=== PATIENT | female | born 1985 | race Caucasian/White ===

== ENCOUNTER 2016-09-08 14:54 | Inpatient (IN) | payer MEDICAID ==
[~2016-09-08] VITALS: Ht 152.4 cm; Wt 83.8 kg
[2016-09-08 14:59] VITALS: Ht 152.4 cm; Wt 83.8 kg
[2016-09-08 15:00] VITALS: BP 139/95
[2016-09-08] MEDS ORDERED: PREN1TAB62 PO (15:08)
[2016-09-08 16:12] LABS: ADD UMIC YES; URINE BILIRUBIN (Dip) NEGATIVE (NEGATIVE); URINE BLOOD (Dip) NEGATIVE (NEGATIVE); URINE COLOR LT. YELLOW (YELLOW); URINE GLUCOSE (Dip) NEGATIVE (NEGATIVE); URINE KETONES (Dip) NEGATIVE (NEGATIVE); URINE LEUKOCYTE ESTERASE (Dip) TRACE (NEGATIVE); URINE NITRITE (Dip) NEGATIVE (NEGATIVE); URINE TOTAL PROTEIN (Dip) NEGATIVE (NEGATIVE); URINE UROBILINOGEN (Dip) 0.2 E.U./dL (0.1-1.0)
[2016-09-08 16:20] LABS: BACTERIA,URINE FEW; URINE RBCS 0-2 /HPF (0)
--- NOTE | 2016-09-08 16:23 | RADRPT ---
PROCEDURE: US OB biophysical profile. CLINICAL INDICATION: decreased movements, GDM TECHNIQUE: Multiple sonographic images of the pelvis were obtained. The images were reviewed on a PACS workstation. COMPARISON: No prior studies are available for comparison. FINDINGS: There is a single viable intrauterine gestation. Cardiac activity is present with 148 beats per min [place]. There is a vertex presentation. The placenta is posterior. There is no evidence of placental abruption. There is a slightly increased amount of amniotic fluid with an ANIKA = 23.5 cm. Biophysical profile: movement 2/2 tone 2/2. breathing 2/2 ANIKA 2/2 Total 02/20 RPTAT: AA . IMPRESSION: Normal biophysical profile. Mild polyhydramnios. . .Peter Hurtado MD, Date Time Electronically viewed and signed by .Peter Hurtado MD, MD on 09/08/2016 16:23 .S/
--- NOTE | 2016-09-08 16:23 | RADRPT ---
PROCEDURE: US OB. CLINICAL INDICATION: Size and dates , GDM TECHNIQUE: Multiple sonographic images of the pelvis and gravid uterus were obtained. The images were reviewed on a PACS workstation. COMPARISON: No prior studies are available for comparison. FINDINGS: There is a single viable intrauterine gestation. Cardiac activity is present with 135 beats per min mar[place]. There is a vertex presentation. The placenta is posterior. There is no evidence for an abruption or placenta previa. There is an increased amount of amniotic fluid with an ANIKA = 23.5 cm. Measurements were made in order to determine age. The results are as follows: BPD =9.7 cm HC =35.1 cm AC =36.5 cm FL =7.8 cm Estimated gestational age of approximately 40 weeks and 2 days based on ultrasound measurements. Clinical age: 37 weeks and 5 days. The EFW = 4035 g, >97%, based on LMP age. RPTAT: AA IMPRESSION: Single viable intrauterine gestation of approximately 40 weeks and 2 days based on ultrasound measu rements. Larger than clinical age by 2.5 weeks. Mild polyhydramnios. .Peter Hurtado MD, Date Time Electronically viewed and signed by .Peter Hurtado MD, on 09/08/2016 16:22 .S/
--- NOTE | 2016-09-08 17:11 | NSTRPT ---
NST Information Datetime Report Generated by CPN: 09/08/2016 17:11 Datetime: 09/08/2016 09:06 NST Information EGA: 37.5 Test Number: 6 Time on Monitor: 09/08/2016 09:25 Time off Monitor: 09/08/2016 10:06 NST Duration (Min): 41 Reason for NST: Diabetes Mellitus; Other Reason for NST Other: A1DM Test and Monitor Explained: Monitor Explained; Test Explained; Verbalized Understanding Pulse: 85 Resp: 18 SBP: 130 DBP: 80 Test Evaluation NST Interventions: Reposition Patient Patient States Movement: Present Contraction Frequency: x1, denies FHR Baseline : 145 Variability: Moderate 6-25bpm Accelerations: 15X15 Decelerations: None FHR Category: Category I NST Results: Reactive Comments: Pt to U/S, ANIKA 14.89, breech FBS 72. 1008:Pt D/c home with pre term labor precauitons, discussed kick counts, F/U appt g iven, pt verbalizes understanding and deneis questions at this point. Electronically Signed By E-Signature: with User ID: [id number] Datetime: 09/05/2016 09:28 NST Information EGA: 37.2 NST Duration (Min): 21 Datetime: 09/01/2016 09:21 NST Information EGA: 36.5 NST Duration (Min): 27 Datetime: 08/29/2016 09:15 NST Information EGA: 36.2 NST Duration (Min): 27 Datetime: 08/25/2016 09:00 NST Information EGA: 35.5 NST Duration (Min): 45 Datetime: 08/22/2016 09:37 NST Information EGA: 35.2 Datetime: 08/22/2016 09:25 NST Duration (Min): 27
[2016-09-08 17:26] LABS: ALBUMIN 3.1 g/dl (3.3-4.9)
[2016-09-08 17:27] LABS: ALBUMIN 3.1 g/dl (3.3-4.9)
[2016-09-08 17:27] LABS: POTASSIUM 4.2 mmol/L (3.5-5.1)
[2016-09-08 17:28] LABS: POTASSIUM 4.2 mmol/L (3.5-5.1)
[2016-09-08 17:29] LABS: CREATININE 0.63 mg/dl (0.44-1.00); PHOSPHORUS 3.6 mg/dl (2.5-4.9); TOTAL PROTEIN 5.8 g/dl (6.1-8.1); URIC ACID 5.7 mg/dl (3.1-7.9)
[2016-09-08 17:30] LABS: CALCIUM 8.7 mg/dl (8.4-10.2)
[2016-09-08 17:30] LABS: ALBUMIN/GLOBULIN RATIO 1.14; CREATININE 0.63 mg/dl (0.44-1.00); TOTAL PROTEIN 5.8 g/dl (6.1-8.1)
[2016-09-08 17:31] LABS: CALCIUM 8.6 mg/dl (8.4-10.2)
--- NOTE | 2016-09-08 18:33 | HP ---
Date/Time of Note Date/Time of Note DATE: 09/08/16 TIME: 18:24 OB - History Hx of Present Free Text/Dictation OB Triage Pt is a 31yo at 37+4 w/GDMA1 (FSBG 72) and hx of elevated BPs in prior , sent from clinic for r/o PIH in the setting of elevated BPs in clinic : 145/97, 143/95, 139/103. Pt denies BROWN, visual changes, RUQ pain, LOF or VB. C/ o UCs. Hx of C/S at 36wks 2/2 elevated BPs in 2007, weight 4.5kg Pt also w/hx of appendicitis Of note, pt seen for surveillance this AM and ANIKA 14.89cm and fetus in breech presentation. BP 130/80 PROCEDURE: US OB biophysical profile. CLINICAL INDICATION: decreased movements, GDM TECHNIQUE: Multiple sonographic images of the pelvis were obtained. The images were reviewed on a PACS workstation. COMPARISON: No prior studies are available for comparison. FINDINGS: There is a single viable intrauterine gestation. Cardiac activity is present with 148 beats per minute. There is a vertex presentation. The placenta is posterior. There is no evidence of placental abruption. There is a slightly increased amount of amniotic fluid with an ANIKA = 23.5 cm. Biophysical profile: movement 2/2 tone 2/2. breathing 2/2 ANIKA 2/2 Total 8/8 RPTAT: AA . IMPRESSION: Normal biophysical profile. Mild polyhydramnios. . PROCEDURE: US OB. CLINICAL INDICATION: Size and dates , GDM TECHNIQUE: Multiple sonographic images of the pelvis and gravid uterus were obtained. The images were reviewed on a PACS workstation. COMPARISON: No prior studies are available for comparison. FINDINGS: There is a single viable intrauterine gestation. Cardiac activity is present with 135 beats per minute. There is a vertex presentation. The placenta is posterior. There is no evidence for an abruption or placenta previa. There is an increased amount of amniotic fluid with an ANIKA = 23.5 cm. Measurements were made in order to determine age. The results are as follows: BPD = 9.7 cm HC = 35.1 cm AC = 36.5 cm FL = 7.8 cm Estimated gestational age of approximately 40 weeks and 2 days based on ultrasound measurements. Clinical age: 37 weeks and 5 days. The EFW = 4035 g, >97%, based on LMP age. RPTAT: AA IMPRESSION: Single viable intrauterine gestation of approximately 40 weeks and 2 days based on ultrasound measurements. Larger than clinical age by 2.5 weeks. Mild polyhydramnios. Estimated Due Date: Sep 24, 2016 : 2 Para: 1 Care: Good Care Obstetrical Complications: Gestational Diabetes Medical Complications: None Past Family/Social History * Past Medical, Surgical, Family and Obstetric Histories reviewed from chart. Blood Type: O+ Rubella: immune RPR/VDRL: Negative GBS Status: Positive HBsAG: Negative OB Admission Exam Vital Signs Vital Signs Vital Signs Date Time Temp Pulse Resp B/P Pulse Ox O2 Delivery O2 Flow Rate FiO2 09/08/16 15:00 98.6 139/95 Room Air 113-145/80-92 Physical Exam HEENT: WNL Heart: Rhythm Normal Lungs: Clear Abdomen: WNL Extremities: Normal Reflexes: Normal Membranes: Intact Heart Rate: 140's Accelerations: Accelerations Present Decelerations: No Decelerations Varibility: Moderate Contractions on Admission: < 5 Minutes Apart (asymptomatic UCs, q2-3 min) Last 72 hours Lab Results CBC & BMP 09/08/16 16:30 09/08/16 16:45 Liver Function Test 09/08/16 16:30 09/08/16 16:45 Alanine Aminotransferase (ALT/SGPT) 25 20 Albumin 3.1 L 3.1 L Alkaline Phosphatase 204 H 205 H Aspartate Amino Transf (AST/SGOT) 21 22 Direct Bilirubin 0.00 0.00 Total Protein 5.8 L 5.8 L OB Assessment/Plan Other Assessment: New onset elevated BPs w/o e/o PreE Suspected macrosomia Reassuring well-being Hx of C/S x1 Other plan: Given pt with SBPs >140 and DBPs >90s greater than 4hrs apart, pt meets criteria for gestational hypertension In setting of gHTN at >37wks would recommend non-emergent delivery and pt in agreement with this plan Plan for repeat C/S when able. Pt last ate at 12:30pm Pt signed out to [facility] Laborist, Dr. Crocker, who is covering for SAWYER Ruiz MD Sep 08, 2016 18:33
[2016-09-08 19:51] LABS: FIBRIN SPLIT PRODUCT <10 ug/ml (<10)
[2016-09-08] MEDS ORDERED: OXYTOCIN 30 UNITS/LR 500 ML IV PRN (20:00)
[2016-09-08] MEDS ORDERED: OXYTOCIN 30 UNITS/LR 500 ML IV SCH (20:00)
[2016-09-08] MEDS ORDERED: METHYLERGONOVINE 0.2 MG INJ IM PRN (20:00)
[2016-09-08] MEDS ORDERED: CARBOPROST 250 MCG INJ IM PRN (20:00)
[2016-09-08] MEDS ORDERED: MISOPROSTOL 200 MCG TAB PR PRN (20:00)
[2016-09-08] MEDS ORDERED: CEFAZOLIN 2 GM/50 ML (PMX) 50 ML IV SCH (20:00)
[2016-09-08 20:01] LABS: ADD SCAN DIFF NO
--- NOTE | 2016-09-08 20:01 | TRIAGE ---
OB Triage Datetime Report Generated by CPN: 09/08/2016 20:01 Datetime: 09/08/2016 19:37 Vaginal Exam Membrane Status: Intact Datetime: 09/08/2016 18:47 Labor Evaluation Frequency: 1-3 Monitor Mode: External Duration (sec)2399: 30-60 Pattern: Normal: <= 5 Contractions in 10 Minutes Resting Tone [place]: Relaxed Heart Rate FHR Baseline Rate: 145 Monitor Mode: External US Variability: Moderate 6-25 bpm Accelerations: 15X15 Decelerations: None Category: Category I Pain Presence: None/Denies Pain Type: N/A Datetime: 09/08/2016 17:21 Labor Evaluation Frequency: 2-3 Monitor Mode: External Duration (sec)2399: 30-60 Resting Tone [place]: Relaxed Monitor Mode: External US Pain Presence: None/Denies Pain Type: N/A Datetime: 09/08/2016 15:55 Labor Evaluation Frequency: 1-4 Monitor Mode: External Duration (sec)2399: 30-60 Resting Tone [place]: Relaxed Heart Rate FHR Baseline Rate: 150 Monitor Mode: External US Variability: Moderate 6-25 bpm Accelerations: 15X15 Decelerations: None Category: Category I Datetime: 09/08/2016 15:11 Stage of : OB Triage Assessment Type: Triage Maternal Assessment Level of Consciousness: Fully Conscious DTR's/Clonus: DTRs 2+; No Clonus Headache: Denies Blurred Vision: No Respiratory Effort: Unlabored; Regular Rhythm; Equal Expansion Breath Sounds, Left: Clear and Equal Breath Sounds, Right: Clear and Equal Nausea/Vomiting: Denies RUQ Epigastric Pain: Denies Lower Extremities Edema: None Degree: None Upper Extremities Edema: None Degree: None Facial Edema: None Temperature Route: Oral Fall Risk Assessment History of Falling: (0) No Secondary Diagnosis: (0) No Ambulatory Aid: (0) Bedrest/Nurse Assist IV Therapy: (0) No Gait: (0) Normal/Bedrest/Immobile Mental Status: (0) Oriented to Own Ability Fall Score: 0 Fall Risk Score Definition: No Risk: No action required Labor Evaluation Frequency: 0 Monitor Mode: External Resting Tone [place]: Relaxed Heart Rate FHR Baseline Rate: 145 Monitor Mode: External US Variability: Moderate 6-25 bpm Accelerations: 15X15 Decelerations: None Category: Category I Pain Assessment Pain Scale: 0 Pain Presence: None/Denies Pain Type: N/A Datetime: 09/08/2016 15:10 Time of Arrival: 09/08/2016 14:51 EGA: 37.5 Arrived By: Ambulatory Arrived From: Dr. Aponte Chief Complaint: SENT FOR PI WORK UP Movement: Present Rupture of Membranes: Denies Vaginal Bleeding: None Vaginal Discharge: Denies Recent Sexual Intercouse: Denies Abdominal Trauma: Not Applicable Patient Complaints: Other Time Provider Notified: 09/08/2016 15:55 Provider Notified: DR. TRIPP Initial Plan: CRISSY
[2016-09-08] MEDS: LACTATED RINGER'S 1,000 ML IV SCH ×2 (20:07→21:04)
[2016-09-08 20:10] LABS: INR 0.83; PROTIME 11.4 Sec (12.2-14.2); PT RATIO 0.9
[2016-09-08 20:11] LABS: PARTIAL THROMBOPLASTIN TIME 25.7 Sec (25.0-35.0)
[2016-09-08 20:20] LABS: BASOPHILS % 0.1 % (0.0-2.0); EOSINOPHILS % 0.4 % (0.0-7.0); HEMATOCRIT 34.6 % (37.0-47.0); HEMOGLOBIN 11.7 g/dl (12.0-16.0); LYMPHOCYTES # 3.3 10^3/ul (0.8-2.9); LYMPHOCYTES % 35.6 % (15.0-51.0); MEAN CORPUSCULAR HEMOGLOBIN 29.8 pg (29.0-33.0); MEAN CORPUSCULAR HGB CONC 33.8 g/dl (32.0-37.0); MEAN PLATELET VOLUME 12.1 fl (7.4-10.4); MONOCYTE # 0.4 10^3/ul (0.3-0.9); MONOCYTES % 4.4 % (0.0-11.0); NEUTROPHIL # 5.5 10^3/ul (1.6-7.5); NEUTROPHILS % 58.9 % (39.0-77.0); PLATELET COUNT 172 10^3/UL (140-415); RED BLOOD COUNT 3.93 10^6/ul (4.20-5.40); RED CELL DISTRIBUTION WIDTH 14.2 % (11.5-14.5); WHITE BLOOD COUNT 9.3 10^3/ul (4.8-10.8)
[2016-09-08] MEDS ORDERED: CITRIC ACID/NA CITRATE 30 ML CUP ONE (21:13)
[2016-09-08] MEDS ORDERED: ONDANSETRON 4 MG INJ ONE (21:17)
[2016-09-08] MEDS ORDERED: LACTATED RINGER'S 1,000 ML IV ONE (22:27)
[2016-09-08] MEDS ORDERED: ONDANSETRON 4 MG INJ IV ONE (22:30)
[2016-09-08] MEDS ORDERED: CITRIC ACID/NA CITRATE 30 ML CUP PO ONE (22:30)
[2016-09-08] MEDS ORDERED: morphine SULFATE/PF (10 MG/10 ML) INJ ONE (23:13)
[2016-09-08] MEDS ORDERED: FENTAnyl 50 MCG/ML VIAL ONE (23:13)
[2016-09-08] MEDS ORDERED: METOCLOPRAMIDE 10 MG INJ ONE (23:41)
[2016-09-08] MEDS ORDERED: OXYTOCIN 30 UNITS/LR 500 ML IV ONE (23:41)
[2016-09-08] MEDS ORDERED: OXYTOCIN 10 UNIT INJ ONE ×2 (23:42→23:54)
[2016-09-08] MEDS ORDERED: PHENYLephrine (100 MCG/ML) 5ML SYG ONE (23:47)
[2016-09-09] MEDS ORDERED: MEPERIDINE 100 MG INJ ONE (00:19)
[2016-09-09] MEDS ORDERED: OXYTOCIN 30 UNITS/LR 500 ML IV ONE (00:19)
[2016-09-09] MEDS ORDERED: OXYTOCIN 30 UNITS/LR 500 ML IV SCH (00:30)
[2016-09-09] MEDS ORDERED: OXYTOCIN 30 UNITS/LR 500 ML IVPB ONE (00:30)
[2016-09-09] MEDS ORDERED: PROCHLORPERAZINE 10 MG INJ IV PRN (01:30)
[2016-09-09] MEDS ORDERED: morphine 2 MG INJ IV PRN ×2 (01:30)
[2016-09-09] MEDS ORDERED: ONDANSETRON 4 MG INJ IV PRN (01:30)
[2016-09-09] MEDS ORDERED: NALOXONE (0.4 MG/ML) INJ IV PRN (01:30)
[2016-09-09] MEDS ORDERED: DIPHENHYDRAMINE 50 MG INJ IV PRN (01:30)
[2016-09-09] MEDS: KETOROLAC 30 MG INJ IV PRN ×2 (02:01→18:25)
[2016-09-09] MEDS ORDERED: OXYTOCIN 30 UNITS/LR 500 ML IV PRN (02:30)
[2016-09-09] MEDS ORDERED: MISOPROSTOL 200 MCG TAB PR PRN (02:30)
[2016-09-09] MEDS ORDERED: METHYLERGONOVINE 0.2 MG INJ IM PRN (02:30)
[2016-09-09] MEDS ORDERED: CARBOPROST 250 MCG INJ IM PRN (02:30)
[2016-09-09] MEDS ORDERED: LABETALOL 200 MG TAB PO ONE (02:30)
[2016-09-09 03:45] VITALS: BP 155/89; PULSE 68; RESP 20
[2016-09-09] MEDS: LACTATED RINGER'S 1,000 ML IV SCH ×5 (03:45→19:46)
[2016-09-09] MEDS: CEFAZOLIN 1 GM/50 ML (PMX) 50 ML IV SCH ×2 (03:54→12:38)
[2016-09-09 05:00] VITALS: BP 135/85; PULSE 68; RESP 18
--- NOTE | 2016-09-09 05:14 | DELSUM ---
Delivery Summary A-C Datetime Report Generated by N: 09/09/2016 05:13 DELIVERY PERSONNEL Communications Designer: Mcnair, Crystal MATERNAL INFORMATION Delivery Anesthesia: Spinal Medications in Delivery: LR with pitocin 30 units Estimated Blood Loss (ml): 600 Placenta Cultured: No Maternal Complications: Other Other Maternal Complications: GDM LABOR SUMMARY EDC: 09/24/2016 00:00 No. Babies in Womb: 1 Attempted: No Labor Anesthesia: None LABOR INFORMATION Reason for Induction: Not Applicable (Annotations: Data stored by [facility] on behalf of user) Oxytocin: N/A Group B Beta Strep: Positive Antibiotics # of Doses: 1 Antibiotics Time of Last Dose: 09/08/2016 23:40 Steroids Given: None Reason Steroids Not Administered: Not Applicable MEMBRANES Membranes Rupture Method: Artificial Rupture of Membranes: 09/08/2016 23:56 Length of Rupture (hr): 0.02 Amniotic Fluid Color: Clear Amniotic Fluid Amount: Moderate Amniotic Fluid Odor: None STAGES OF LABOR Stage 3 hr: 0 Stage 3 min: 1 CSECTION DELIVERY Primary Indication: Repeat Elective Secondary Indication: N/A CSection Urgency: Non Elective CSection Incidence: Repeat Labor: Labor CSection Incision: Lower Uterine Transverse Sterilization Procedure: [place] BABY A INFORMATION Delivery Date/Time: 09/08/2016 23:57 Method of Delivery: Born in Route : No : N/A Forceps: N/A Vacuum Extraction: N/A Shoulder Dystocia : N/A SHOULDER DYSTOCIA BABY A Infant Delivery Date/Time: 09/08/2016 23:57 PRESENTATION/POSITION BABY A Presentation: Cephalic Cephalic Presentation: Vertex Breech Presentation: N/A PLACENTA INFORMATION BABY A Placenta Delivery Time : 09/08/2016 23:58 Placenta Method of Delivery: Manual Removal Placenta Status: Delivered SCORES BABY A Heart Rate 1 min: >100 bpm Resp Effort 1 min: Good Cry Reflex Irritability 1 min: Cough/Sneeze/Pulls Away Muscle Tone 1 min: Active Motion Color 1 min: Blue/Pale Resuscitation Effort 1 min: Tactile Stimulation SCORE 1 MIN: 8 Heart Rate 5 min: >100 bpm Resp Effort 5 min: Good Cry Reflex Irritability 5 min: Cough/Sneeze/Pulls Away Muscle Tone 5 min: Active Motion Color 5 min: Body Shelley, Extremit Blue Resuscitation Effort 5 min: Tactile Stimulation SCORE 5 MIN: 9 INFORMATION BABY A Gestational Age at Delivery: 37.5 Gestational Status: Early Term- 37- 38.6 Weeks Outcome : Liveborn Infant Condition : Stable Infant Sex: Male IDENTIFICATION/MEDS BABY A ID Band Number: [id number] ID Band Location: Right Leg; Left Arm Sensor Applied: Yes Sensor Number: [id number] Sensor Location : Cord Clamp Vitamin K Given : Not Given Erythromycin Given: Not Given WEIGHT/LENGTH BABY A Infant Birthweight (gm): 3410 Weight (lb): 7 Infant Weight (oz): 8 Length (in): 19.50 Infant Length (cm): 49.53 CORD INFORMATION BABY A No. Cord Vessels: 3 Nuchal Cord : N/A Cord Blood Taken: Yes Suction: Mouth; Nose ASSESSMENT BABY A Infant Complications: Other Physical Findings at Delivery: Within Normal Limits Infant Respirations: Appears Normal Clinical Faculty/ALS Called : No Care By: sabrina NICOLE, Lb SLATER Transferred To: Remains with Mother
[2016-09-09 07:42] LABS: ADD SCAN DIFF NO
[2016-09-09 07:49] LABS: BASOPHILS % 0.1 % (0.0-2.0); EOSINOPHILS % 0.1 % (0.0-7.0); HEMATOCRIT 36.4 % (37.0-47.0); HEMOGLOBIN 11.8 g/dl (12.0-16.0); LYMPHOCYTES # 2.7 10^3/ul (0.8-2.9); LYMPHOCYTES % 18.9 % (15.0-51.0); MEAN CORPUSCULAR HEMOGLOBIN 28.5 pg (29.0-33.0); MEAN CORPUSCULAR HGB CONC 32.4 g/dl (32.0-37.0); MEAN CORPUSCULAR VOLUME 87.9 fl (82.0-101.0); MEAN PLATELET VOLUME 11.4 fl (7.4-10.4); MONOCYTE # 0.7 10^3/ul (0.3-0.9); MONOCYTES % 4.9 % (0.0-11.0); NEUTROPHIL # 10.7 10^3/ul (1.6-7.5); NEUTROPHILS % 75.3 % (39.0-77.0); PLATELET COUNT 157 10^3/UL (140-415); RED BLOOD COUNT 4.14 10^6/ul (4.20-5.40); RED CELL DISTRIBUTION WIDTH 14.4 % (11.5-14.5); WHITE BLOOD COUNT 14.2 10^3/ul (4.8-10.8)
[2016-09-09 08:00] VITALS: BP 137/82
[2016-09-09 08:09] LABS: ALBUMIN 2.8 g/dl (3.3-4.9)
[2016-09-09 08:10] LABS: POTASSIUM 4.5 mmol/L (3.5-5.1)
[2016-09-09 08:12] LABS: ALBUMIN/GLOBULIN RATIO 1.16; BILIRUBIN,INDIRECT 0.2 mg/dl (0-1.1); BILIRUBIN,TOTAL 0.2 mg/dl (0.2-1.3); CREATININE 0.69 mg/dl (0.44-1.00); TOTAL PROTEIN 5.2 g/dl (6.1-8.1)
[2016-09-09 08:13] LABS: CALCIUM 8.3 mg/dl (8.4-10.2)
[2016-09-09] MEDS: LABETALOL 200 MG TAB PO SCH ×2 (09:04→21:00)
[2016-09-09 12:00] VITALS: BP 129/74; PULSE 85
--- NOTE | 2016-09-09 12:02 | PN ---
Date/Time of Note Date/Time of Note DATE: 09/09/16 TIME: 11:57 OB Subjective Subjective Subjective Post day 1, Vital signs stable blood pressure 137/82, at 3:45 AM was 155/89, patient has no complaint of headache blurry vision or epigastric pain, abdomen soft, lochia moderate, extremity reflexes normal,, ambulation recommended after discontinuation of the IV, current medications labetalol 200 mg every 12 hours with para meters hold if blood pressure less than 140/80 FLAKO TRIPP MD Sep 09, 2016 12:02
[2016-09-09 16:00] VITALS: BP 124/86; PULSE 86; RESP 18
[2016-09-09 20:00] VITALS: BP 133/74; PULSE 85; RESP 19
[2016-09-09] MEDS ORDERED: CEFAZOLIN 1 GM/50 ML (PMX) 50 ML IVPB SCH (20:00)
[2016-09-10] MEDS: LACTATED RINGER'S 1,000 ML IV SCH ×4 (02:24→11:46)
[2016-09-10] MEDS: OXYCODONE/ACETAMINOPHEN (5/325) TAB PO PRN ×3 (02:49→10:08)
[2016-09-10 04:15] VITALS: BP 110/74; PULSE 84; RESP 18
[2016-09-10] MEDS: IBUPROFEN 600 MG TAB PO SCH ×5 (06:00→23:48)
[2016-09-10 08:00] VITALS: BP 119/70; PULSE 84; RESP 20
[2016-09-10] MEDS: LABETALOL 200 MG TAB PO SCH ×2 (08:56→20:33)
[2016-09-10] MEDS ORDERED: INFLUENZA VIRUS VACCINE 0.5 ML (DISPENSING) IM* ONE (09:00)
--- NOTE | 2016-09-10 11:48 | PN ---
Date/Time of Note Date/Time of Note DATE: 09/10/16 TIME: 11:47 OB Subjective Subjective Subjective Post day 2 Afebrile, blood pressures running on 120s over 70s, has no complaint of headache , blurry vision, or gastric, her abdomen is soft has good bowel sounds no bowel movement yet enema recommended FLAKO TRIPP MD Sep 10, 2016 11:48
[2016-09-10 16:00] VITALS: BP 124/80; PULSE 94; RESP 18
[2016-09-10 20:00] VITALS: BP 132/70; PULSE 87; RESP 20
[2016-09-11 04:15] VITALS: BP 130/82; PULSE 86; RESP 18
[2016-09-11] MEDS: IBUPROFEN 600 MG TAB PO SCH ×2 (05:43→12:34)
[2016-09-11 08:25] VITALS: BP 121/76; PULSE 94; RESP 14
[2016-09-11] MEDS: LABETALOL 200 MG TAB PO SCH (09:00)
[2016-09-11] MEDS ORDERED: NA PHOSPHATE/BIPHOS 133 ML ENEMA PR ONE (13:00)
--- NOTE | 2016-09-11 13:15 | DS ---
Date/Time of Note Date/Time of Note DATE: 09/11/16 TIME: 13:04 Obstetrical Discharge Record Final Diagnosis Final Diagnosis: Term delivered Section Section: Repeat Condition on Discharge Physical Assessment Last Vitals: This is a 30 years old female 2 para 1 history of previous C- section in labor also was complicated with pih, underwent repeat C- section by Dr. quiros, her postoperative course in the hospital was uneventful did not spike temperature or having problem with bowel function or urination her blood pressure urine Running 120s 130s over 70-75, patient discharged home with a prescription of of analgesics multivitamin and labetalol 100 mg every 12 hour recommended follow-up at the clinic in 4 days Voiding: Yes Breast: Soft, non-tender, Filling Fundus: Firm Abdomen and Incision: Healing well dry Calf Tenderness: No Patient Condition: Good FLAKO TRIPP MD Sep 11, 2016 13:15
--- NOTE | 2016-09-11 13:17 | PD.PPDC ---
LOSS PREVENTION COORDINATOR Discharge Instruction Condition Patient Condition: Good Diet Diet: Resume Regular Diet Activity/Restrictions Restrictions: No Exercising Wound/Drain Care Instructions Wound/Drain Care Instructions: Remove Steri Strips in 1 week Follow-up Follow-up with Physician: 4, Day/Days Provider Information: Recommended to make appointment in 4 days to be seen at the clinic to [place] Return to clinic for RING MAKING MACHINE OPERATOR Instructions: Fever greater than 101 Chills Worsening abdominal pain Excessive Vaginal Bleeding More than 2 pads per hour Unable to tolerate diet OB Instructions: Breast Tenderness Depression Blurried Vision Headache Surgical Instructions: Incisional Drainage Incisional Redness FLAKO TRIPP MD Sep 11, 2016 13:17
[2016-09-11 15:37] VITALS: BP 128/89; PULSE 86; RESP 14
--- NOTE | 2016-09-11 17:38 | OPR ---
DATE OF OPERATION: 09/08/2016 PREOPERATIVE DIAGNOSIS: Prior section. POSTOPERATIVE DIAGNOSIS: Prior section. OPERATION PERFORMED: Repeat section and bilateral tubal ligation. PRIMARY SURGEON: HECTOR ZIMMER MD SPRUE CUTTING PRESS OPERATOR: ANESTHESIA: Epidural. IV FLUIDS: 1100 mL. ESTIMATED BLOOD LOSS: 600 mL. URINE OUTPUT: 200 mL. DESCRIPTION OF PROCEDURE: The patient was taken to the operating room. After adequate amount of anesthesia was given, patient was prepped and draped in normal sterile fashion. Pfannenstiel skin incision was made with the scalpel. Incision was carried through the underlying layer of fascia. The fascia was in the midline and extended bilaterally using the Bovie. Anterior edge of the fascia was grasped with 2 Jenny clamps and elevated and tented up and dissected off from underlying layer of rectus muscles with a Bovie. In a similar fashion the posterior edge of the fascia was grasped and from underlying layer of rectus muscles with the Bovie. Rectus muscles were in the midline. The peritoneum was identified and entered sharply with Metzenbaum scissors without any incident. Peritoneal incision was extended bilaterally sharply and manually. At this moment, attention was turned to the lower uterine segment. A bladder blade was placed to protect the bladder. A bladder flap was created sharply using Metzenbaum scissors and smooth pickups. A low transverse incision was made on the uterus, and the incision was extended bilaterally manually. Fetus was delivered from vertex presentation and handed to the waiting aircraft metalsmith team. At this moment, the placenta was delivered intact manually. Uterus was cleared of all clots and debris. The uterine incision was closed with #1 Vicryl suture in running locked fashion. A second imbricating layer with the same suture was applied for further hemostasis. Attention was turned to the adnexa where the fallopian tube was identified. The mid segment of the fallopian tube was grasped with [place] clamps. Two separate free tie of #0 plain were placed for hemostasis, and 3-cm mid segment of fallopian tube was dissected off sharply with Metzenbaum scissors. The pedicles were inspected. Excellent hemostasis was noted. Cautery was utilized for further hemostasis. Similar procedure was performed on bilateral fallopian tubes. Attention was turned to the uterine incision line were excellent hemostasis was noted. multiple irrigations were performed an excellent hemostasis was confirmed. Adhesion prevention material was applied to the incision line. Peritoneal closure was proceeded with 2-0 Vicryl suture in a running fashion. Muscles were reapproximated with 2-0 Vicryl in an interrupted fashion. Fascia was closed with 0 Vicryl suture in a running fashion in 2 separate segments. Subcutaneous layer was closed with 3-0 plain in an interrupted fashion. Skin was closed with Insorb araceli and Dermabond glue. All sponge, lap, needle counts were correct. The patient tolerated the procedure well and taken back to recovery room in a stable condition. Dictated By: HECTOR PARRISH/AURORA Conf#: [id number] DID#: [id number]
== END 2016-09-11 18:39 | disposition home or self-care (01) | DRG 766 ==
LOC: OBT 14:54 → L-D 14:54 → OBT 19:40 → L-D 22:57 → PP1 09-09 03:36
PROVIDERS: ADMIT Obstetrics & Gynecology; ATTEND Obstetrics & Gynecology
PROC: 10D00Z1 Extraction of Products of Conception, Low, Open Approach (ICD-10-PCS; principal; 2016-09-08 23:00)
DX: O34.211 Maternal care for low transverse scar from previous cesarean delivery (principal); E66.9 Obesity, unspecified; O99.214 Obesity complicating childbirth; Z68.36 Body mass index [BMI] 36.0-36.9, adult; O24.419 Gestational diabetes mellitus in pregnancy, unspecified control; Z3A.37 37 weeks gestation of pregnancy; Z37.0 Single live birth
CPT/HCPCS: 36415; 76815; 76818; 80053; 80069; 80076; 81001; 81003; 83615; 84560; 85025; 85362; 85384; 85610; 85730; 86592; 86850; 86900; 86901; 88302; 88307; 90686; 94760; 99464; G0463; J0690; J1885; J2175; J2270; J2274; J2370; J2405; J2590; J2765; J3010; J7120